=== PATIENT | female | born 1965 | race Caucasian/White ===

== ENCOUNTER → 2018-01-14 | Outpatient (CLI) | payer OTHER ==
[2013-01-14 17:53] VITALS: BP 123/71
[~2018-01-14] MED LIST: BACTRIM DS 8001 TA1 PO; IBU-2200 MG PO; LORTAB 5/500 501 TAB PO
== END ==
LOC: MAMMO 14:40
DX: Z12.31 Encounter for screening mammogram for malignant neoplasm of breast (principal); R92.1 Mammographic calcification found on diagnostic imaging of breast

== ENCOUNTER → 2018-02-03 | Outpatient (CLI) | payer OTHER ==
[2013-01-14 17:53] VITALS: BP 123/71
== END ==
LOC: MAMMO 07:00
DX: R92.0 Mammographic microcalcification found on diagnostic imaging of breast (principal)

== ENCOUNTER 2018-06-09 08:40 | Emergency (ER) | payer OTHER ==
[~2018-06-09] VITALS: Ht 175.3 cm; Wt 109.1 kg
[2018-06-09] MEDS ORDERED: CYCLOBENZAPRINE10 M1 PO (09:19)
[2018-06-09 09:56] VITALS: BP 127/84
== END 2018-06-09 10:00 | disposition home or self-care (01) ==
LOC: ED 08:40
DX: S00.83XA Contusion of other part of head, initial encounter (principal); S80.02XA Contusion of left knee, initial encounter; M54.5 Low back pain; V43.52XA Car driver injured in collision with other type car in traffic accident, initial encounter; Y92.410 Unspecified street and highway as the place of occurrence of the external cause
CPT/HCPCS: J1885; J2360

== ENCOUNTER 2018-06-15 18:57 | Emergency (ER) | payer OTHER ==
[~2018-06-15] VITALS: Ht 172.7 cm; Wt 109.1 kg
[~2018-06-15 18:57] MED LIST changes: +CYCLOBENZAPRINE10 M1 PO
[2018-06-15 21:00] VITALS: BP 148/75
== END 2018-06-15 21:00 | disposition home or self-care (01) ==
LOC: ED 18:57
DX: S83.92XA Sprain of unspecified site of left knee, initial encounter (principal); W18.09XA Striking against other object with subsequent fall, initial encounter; Y92.009 Unspecified place in unspecified non-institutional (private) residence as the place of occurrence of the external cause; S80.02XD Contusion of left knee, subsequent encounter; V49.9XXD Car occupant (driver) (passenger) injured in unspecified traffic accident, subsequent encounter
CPT/HCPCS: J1885; L1830

== ENCOUNTER → 2018-07-14 | Outpatient (CLI) | payer OTHER ==
[2018-06-15 21:00] VITALS: BP 148/75
== END ==
LOC: RAD 10:00
DX: S83.512A Sprain of anterior cruciate ligament of left knee, initial encounter (principal); S83.242A Other tear of medial meniscus, current injury, left knee, initial encounter; S80.02XA Contusion of left knee, initial encounter; M22.42 Chondromalacia patellae, left knee; M25.462 Effusion, left knee; S72.422A Displaced fracture of lateral condyle of left femur, initial encounter for closed fracture; S70.12XA Contusion of left thigh, initial encounter

== ENCOUNTER → 2020-03-01 | Outpatient (CLI) | payer BC | LOC: MAMMO 11:30 | DX: Z12.31 Encounter for screening mammogram for malignant neoplasm of breast (principal) ==

== ENCOUNTER → 2020-03-03 | Outpatient (CLI) | payer BC | LOC: RAD 13:27 | DX: N63.22 Unspecified lump in the left breast, upper inner quadrant (principal) ==

== ENCOUNTER → 2020-03-10 | Outpatient (CLI) | payer BC | LOC: RAD 14:25 | DX: N63.20 Unspecified lump in the left breast, unspecified quadrant (principal); Z98.82 Breast implant status; R92.0 Mammographic microcalcification found on diagnostic imaging of breast | CPT/HCPCS: 15989; 15990; A4648 ==

== ENCOUNTER → 2020-03-21 | Day surgery (SDC) | payer BC | LOC: MSO 07:13 | DX: Z12.11 Encounter for screening for malignant neoplasm of colon (principal); D12.5 Benign neoplasm of sigmoid colon; Z88.0 Allergy status to penicillin | CPT/HCPCS: 00811; J2704; J7120 ==

== ENCOUNTER → 2022-08-28 | Outpatient (CLI) | payer BC ==
[~2022-08-28] MED LIST changes: +TOPCARE OMEPRAZ20 MG PO
== END ==
LOC: RAD 07:15
DX: K80.20 Calculus of gallbladder without cholecystitis without obstruction (principal)